=== PATIENT | male | born 1945 | race Caucasian/White ===

== ENCOUNTER 2021-10-28 10:42 | Emergency (ER) | payer MEDICARE, OTHER ==
[2021-10-28 11:39] VITALS: BP 105/48; TEMP 99.3; BMI 26.2
[2021-10-28 13:13] VITALS: PULSE 68
== END 2021-10-28 13:13 | disposition home or self-care (01) ==
LOC: JER 10:42
DX: U07.1 COVID-19 (principal)
CPT/HCPCS: 0241U-QW; 99283-25; 99284-25; Q0222

== ENCOUNTER 2021-10-28 18:43 | Emergency (ER) | payer OTHER ==
[2021-10-28 19:10] VITALS: BP 146/83; TEMP 99.1; BMI 26.5
[2021-10-28] MEDS ORDERED: BEBTELOVIMAB (EUA) 175 MG/2 ML VIAL IVPUSH ONE (19:35)
[2021-10-28 22:25] VITALS: PULSE 86
== END 2021-10-28 22:26 | disposition home or self-care (01) ==
LOC: JER 18:43
DX: U07.1 COVID-19 (principal)
CPT/HCPCS: 99284-25; Q0222